=== PATIENT | male | born 2000 | race Two or more races ===

== ENCOUNTER 2025-05-06 22:22 | Emergency (ER) | payer BC, SELFPAY ==
[2025-05-06 22:26] VITALS: BMI 26.4
[2025-05-06 22:31] VITALS: BP 130/92; PULSE 93; RESP 20; TEMP 37.1; O2SAT 97
--- NOTE | 2025-05-06 22:57 | PC.NURSE ---
CALLED POISON CONTROL, DO PH, DO FLOURECINE, SUPPORTIVE CARE, ANTIBIOTIC IF NEEDED AND OPTHAMOLGY CONSULT.
[2025-05-07] MEDS: Erythromycin Op Oint 0.5% 1 GM PACKET BOTH EYES (00:01)
[2025-05-07] MEDS: TETRACAINE PF OP SOL 0.5% 4 ML DRPETTE 1 DROP BOTH EYES (00:02)
[2025-05-07] MEDS: FLUORESCEIN SOD 1 MG STRP BOTH EYES (00:04)
[2025-05-07 00:05] VITALS: RESP 18
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
== END 2025-05-07 00:10 | disposition home or self-care (01) ==
PROVIDERS: Emergency Provider Emergency Medicine
DX: S05.01XA Injury of conjunctiva and corneal abrasion without foreign body, right eye, initial encounter (principal); X58.XXXA Exposure to other specified factors, initial encounter
CPT/HCPCS: 99283; A9270